=== PATIENT | female | born 1955 | race Caucasian/White ===

== ENCOUNTER 2017-03-30 07:30 | Day surgery (SDC) | payer BC ==
[~2017-03-30 07:30] MED LIST: Lactated Ringers 1,000 ML IV SCH
[2017-03-30] MEDS ORDERED: fentaNYL 100 MCG/2 ML SDV ONE (08:18)
[2017-03-30] MEDS ORDERED: Propofol 200 MG/20 ML SDV ONE ×3 (08:18→09:18)
[2017-03-30 09:43] VITALS: BP 179/110
--- NOTE | 2017-03-30 13:22 | OR ---
PREOPERATIVE DIAGNOSIS: History of polyps. POSTOPERATIVE DIAGNOSIS: Extensive sigmoid diverticular disease with inability to pass scope beyond 35 to 40 cm. PROCEDURE PROPOSED: Total flexible colonoscopy. PROCEDURE DONE: Limited partial colonoscopy due to sigmoid partial obstruction. INDICATION: This is a 62-year-old female, who comes in for colonic surveillance due to history of polyps. She does supposedly have a known tortuous colon, apparently was uncomfortable for about 6 months after her last colonoscopy. I do not have that dictation. It was felt that she needs a followup exam due to her history of polyps. Last examination was 5 years ago. TECHNIQUE: The patient was brought to the endoscopy suite, placed in left lateral decubitus position. She was sedated per [employer] with propofol. The flexible video colonoscope was then passed transanally under visualization advanced to about 35 to 40 cm, where there was seen to be extensive tortuosity with diverticular disease. The bowel seemed to be very fixed in location. It was not pliable or movable and I was unable to get beyond that particular point after numerous repositioning and attempts. It was noted that she was getting quite bloated due to likely air getting pushed up beyond the partial obstruction and then unable to decompress it. I therefore aborted at that point and brought the scope back out, no polyps were noted throughout that part of the exam, and I do feel that we should get a barium enema in followup. FINAL IMPRESSION: Extensive sigmoid diverticular disease with tortuosity, inability to pass scope beyond 35 cm. PLAN: Barium enema next Wednesday when x-rays here for further evaluation of the extent of her problem and to get a look at the remainder of the colon. In the future, she may benefit with air-contrast barium enemas, every 5 years rather than colonoscopies. SCM: 03/30/2017 09:38:03 MODL: 03/30/2017 13:06:03 /[id number]
--- NOTE | 2017-04-07 08:17 | LETTER ---
04/07/2017 Leticia Dixon RE: LETICIA DIXON : 1955 Dear Leticia, I reviewed the barium enema that you had done recently. There were no signs of any polyps or masses in the remainder of your colon, that I was unable to visualize. You do have diverticulosis and some tortuosity in that area, which made your examination difficult. At this point, you basically have nothing to worry about. You should continue to have your colon evaluated every 5 years. The main question is whether you should have attempted colonoscopies or just proceed with barium enema. You are at an increased risk of bowel perforation with colonoscopy due to your sharp angulations and it may be safer to do a barium enema. If something would be seen on the barium enema, then one would have to consider attempting a colonoscopy to visualize the abnormality. If you have further questions regarding this, feel free to call. Respectfully,
== END 2017-03-30 11:11 | disposition home or self-care (01) ==
LOC: VM.SDS 07:30
PROVIDERS: ATTEND Surgery
DX: Z12.11 Encounter for screening for malignant neoplasm of colon (principal); K57.30 Diverticulosis of large intestine without perforation or abscess without bleeding; K56.69 Other intestinal obstruction; Q43.8 Other specified congenital malformations of intestine; I10 Essential (primary) hypertension; E66.9 Obesity, unspecified; E78.5 Hyperlipidemia, unspecified; Z86.010 Personal history of colon polyps; Z79.899 Other long term (current) drug therapy; Z79.82 Long term (current) use of aspirin; Z88.0 Allergy status to penicillin; Z90.710 Acquired absence of both cervix and uterus; Z98.890 Other specified postprocedural states; Z87.891 Personal history of nicotine dependence; Z68.32 Body mass index [BMI] 32.0-32.9, adult
CPT/HCPCS: 45378; J2704; J3010; J7120

== ENCOUNTER 2019-09-03 13:27 | Emergency (ER) | payer BC ==
[2019-09-03] MEDS ORDERED: Acetaminophen/HYDROcodone 325-5 MG Tab PO ONE (13:30)
[2019-09-03 13:35] VITALS: PULSE 105
[2019-09-03] MEDS ORDERED: Take Home: Acetaminophen/HYDROcodone 325-5 MG, 5 Tab Pack PO ONE (14:03)
[2019-09-03 14:34] VITALS: BP 199/104
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
== END 2019-09-03 14:25 | disposition home or self-care (01) ==
LOC: VM.ED 13:27
DX: T20.22XA Burn of second degree of lip(s), initial encounter (principal); T20.24XA Burn of second degree of nose (septum), initial encounter; I10 Essential (primary) hypertension; E66.9 Obesity, unspecified; Z88.0 Allergy status to penicillin; Z88.8 Allergy status to other drugs, medicaments and biological substances; X12.XXXA Contact with other hot fluids, initial encounter
CPT/HCPCS: 16020; 99283; A9270

== ENCOUNTER 2022-09-05 07:24 | Emergency (ER) | payer MEDICARE, BC ==
[2022-09-05] MEDS ORDERED: Sodium Chloride 0.9% 1,000 ML IV ONE (07:27)
[2022-09-05] MEDS ORDERED: HYDROmorphone 0.5 MG/0.5 ML Syringe IVPUSH ONE ×2 (07:27→08:12)
[2022-09-05] MEDS ORDERED: Ondansetron 4 MG/2 ML SDV IVPUSH ONE (07:27)
[2022-09-05 08:08] LABS: ANION GAP 14.4 mmol/L (5-15); CHLORIDE,CL 102 mmol/L (98-107); ESTIMATED GFR 71 mL/min (>=60); SODIUM,NA 139 mmol/L (136-145)
[2022-09-05] MEDS ORDERED: Iopamidol 612 MG/ML 100 ML Bottle IVPUSH ONE (09:14)
[2022-09-05] MEDS ORDERED: HYDROmorphone 1 MG/ML Syringe IVPUSH ONE (09:35)
[2022-09-05] MEDS ORDERED: Ketorolac 30 MG/ML SDV IVPUSH ONE (10:21)
[2022-09-05] MEDS ORDERED: Tamsulosin 0.4 MG Cap.ER PO ONE (10:30)
[2022-09-05 10:36] VITALS: BP 190/90; PULSE 72
== END 2022-09-05 10:55 | disposition home or self-care (01) ==
LOC: VM.ED 07:24
DX: N13.2 Hydronephrosis with renal and ureteral calculous obstruction (principal); I10 Essential (primary) hypertension; E66.9 Obesity, unspecified; Z68.34 Body mass index [BMI] 34.0-34.9, adult; Z88.8 Allergy status to other drugs, medicaments and biological substances; Z88.0 Allergy status to penicillin; Z87.891 Personal history of nicotine dependence; Z79.899 Other long term (current) drug therapy
CPT/HCPCS: 74178; 80053; 81001; 82150; 83690; 85025; 86140; 96361; 96374; 96375; 96376; 99283; 99284-25; A9270-GY; J1170; J1885; J2405; J7030; Q9967

== ENCOUNTER 2022-09-07 09:59 | Emergency (ER) | payer MEDICARE, BC ==
[2022-09-07] MEDS ORDERED: Ketorolac 30 MG/ML SDV IM ONE (10:16)
[2022-09-07 19:04] VITALS: BP 150/78; PULSE 91
== END 2022-09-07 11:11 | disposition home or self-care (01) ==
LOC: VM.ED 09:59
DX: N20.1 Calculus of ureter (principal); I10 Essential (primary) hypertension; E66.9 Obesity, unspecified; Z68.34 Body mass index [BMI] 34.0-34.9, adult; Z88.0 Allergy status to penicillin; Z88.8 Allergy status to other drugs, medicaments and biological substances
CPT/HCPCS: 96372; 99283; J1885